=== PATIENT | female | born 1960 | race Caucasian/White ===

== ENCOUNTER 2025-08-17 11:27 | Emergency (ER) | payer MEDICARE, SELFPAY ==
[2025-08-17 11:29] VITALS: BP 182/88
[2025-08-17 12:56] LABS: Hematocrit 44.7 % (37.0-47.0); Hemoglobin 14.9 g/dL (12.0-16.0); Mean Corp Hgb Conc. 33.3 g/dL (33.0-37.0); Mean Corpuscular Volume 80.4 fL (81.0-99.0); Nucleated Red Blood Cells % 0 %; Platelet Count 259 10^3/uL (130-400); Red Cell Dist. Width 12.8 % (11.5-14.5)
[2025-08-17 13:24] LABS: Troponin I < 0.012 ng/ml
[2025-08-17 13:54] LABS: Blood Urea Nitrogen 19 mg/dl (7-17); Calcium 10.2 mg/dl (8.4-10.2); Carbon Dioxide 27 mmol/L (22-30); Chloride 102 mmol/L (98-107); Glucose 112 mg/dl (70-99); Lipase 76 U/L (23-300); Sodium 135 mmol/L (135-145); eGFR > 60.00
[2025-08-17 13:56] VITALS: BMI 36.6
[2025-08-17] MEDS: NSS 1000 IV (13:57)
[2025-08-17] MEDS: TORADOL 15 MG IV (13:58)
[2025-08-17 15:00] VITALS: BP 159/70
--- NOTE | 2025-08-17 15:19 | ED.GENMED ---
History of Present Illness
General
Chief Complaint: Abdominal Pain
Time Seen by Provider: 08/17/25 12:38
History of Present Illness
History of Present Illness:
65-year-old female with history of hypertension and rza-zsbrgjm-murcswhsb diabetes presents to the emergency department for evaluation of right upper abdominal pain beginning yesterday. She has known history of cholelithiasis and typically is able
to manage her biliary colic episodes however this is much more severe than normal. Denies any fevers or chills. She is vomiting and having diarrhea as well. Notes that 2 weeks ago she was started on Mounjaro and her last dose was 1 week ago
Review of Systems
Review of Systems
Allergies reviewed?: Yes
All Other Systems: ROS reviewed and negative except as documented in HPI and ROS
Phy Exam
Physical Exam
Physical Exam:
GEN: Well appearing, NAD, WDWN
HEENT: Oral mucosa moist, no scleral icterus
Cardiac: Regular rate
Lung: No respiratory distress, no tachypnea
Abdomen: Soft, moderate right upper quadrant tenderness, no rigidity or peritoneal signs, negative Vasquez
MSK: No gross deformity or injuries
Skin: Good color, no pallor or jaundice, no rashes
Neuro: AO x3, moves all extremities freely
Psych: Calm, cooperative
Course
Orders/Labs/Results
Orders:
Orders
08/17/25 12:35
Electrocardiogram (*1) Urgent
Reason for Study: Abdominal Pain
EKG- Treatment ONCE
08/17/25 12:46
Basic Metabolic Panel Urgent
Complete Blood Count/With Diff Urgent
Lipase Urgent
Troponin I Urgent
08/17/25 12:54
0.9% Sodium Chloride 1000 ml [Nss] 1,000 ml IV BOLUS
Ketorolac [Toradol] 15 mg IV NOW STA
Metoclopramide [Reglan] 10 mg IV NOW STA
US Abdomen Complete/Upper Urgent
Comment:
Reason For Exam: RUQ pain
08/17/25 14:26
Morphine Sulfate 4 mg IV NOW STA
Abnormal Lab Results
08/17/25
12:46
WBC 13.8 H 10^3/uL
(4.8-10.8)
RBC 5.56 H 10^6/uL
(4.20-5.40)
MCV 80.4 L fL
(81.0-99.0)
MCH 26.8 L pg
(27.0-31.0)
Abs Immat Gran (auto) 0.1 H 10^3/uL
(0-0.05)
Absolute Neuts (auto) 11.9 H 10^3/uL
(1.4-6.5)
Neutrophils % 86.1 H %
(42.2-75.2)
Lymphocytes % 9.0 L %
(20.5-51.1)
BUN 19 H mg/dl
(7-17)
Glucose 112 H mg/dl
(70-99)
08/17/25 12:46
08/17/25 12:46
Vital Signs
Initial and Last Documented VS:
Initial Vital Signs
Temp Pulse Resp BP Pulse Ox
98.2 F 68 18 182/88 97
08/17/25 11:29 08/17/25 11:29 08/17/25 11:29 08/17/25 11:29 08/17/25 11:29
Last Documented Vital Signs
Temp Pulse Resp BP Pulse Ox
98.2 F 67 14 159/70 97
08/17/25 11:29 08/17/25 15:45 08/17/25 15:45 08/17/25 15:00 08/17/25 15:45
MDM/Problems Addressed
MDM/Problems Addressed:
Ultrasound confirms cholelithiasis with no evidence for biliary ductal dilation or cholecystitis. Patient's pain did improve modestly with Toradol. I did discuss the option for surgical consultation and possible admission due to her persistent
pain however she would prefer to do this on an outpatient basis. She is advised to stop her GLP-1, she also declined narcotic pain medication. Low-fat diet advised
*Pulse Oximetry
SaO2: 97
Oxygen Mode of Delivery: Room air
Patient hypoxic: no
*Critical Care Note
Total Time (30-74mins, 75-104mins- exclusive of procedures): Not Applicable
ED Attending Note
-
Portions of this chart may have been created with voice recognition software.� Occasional wrong word or��sound alike� substitutions may have occurred due to the inherent limitations of voice recognition software.
Discharge Plan
Departure
Patient Disposition: Home (Routine Discharge)
Date of Disposition: 08/17/25
Time of Disposition: 15:19
Admit to: Med/Surg
Patient with high blood pressure during this ER visit?: No
Discharge Problem:
Biliary colic
Instructions: Gallstones (DC)
Referrals:
NEGIN ALLEN CRNP [Family Provider, Family Practice]
Jase Colon MD [Active, Surgical] - Call in 1-3 days for appt
Activity Restrictions/Additional Instructions:
Follow up with surgery
Return to the ER if you develop worsening pain or a fever
Interventions
Interventions:
*Risk Screen - Suicide Last Done: 08/17/25 11:29
*General Assessment Last Done: 08/17/25 13:53
*Neglect/Abuse Screening Last Done: 08/17/25 13:53
*ED- Fall Risk Assessment Last Done: 08/17/25 13:53
*ED COVID-19 Vaccine History Last Done: 08/17/25 13:53
*ED Influenza Vaccine History Last Done: 08/17/25 13:53
*Nursing Disposition Last Done: 08/17/25 15:58
HK-Iczsnk-Nhrwnykspb Assessment Last Done: 08/17/25 13:53
Discharge Date and Time
Discharge Date/Time: 08/17/25 16:08
Print Language: BULGARIAN
== END 2025-08-17 16:08 | disposition home or self-care (01) ==
LOC: EMR 11:27
PROVIDERS: EMERGENCY PHYSICIAN Emergency Medicine; FAMILY PHYSICIAN Nurse Practitioner Gerontology
DX: K80.70 Calculus of gallbladder and bile duct without cholecystitis without obstruction (principal); I10 Essential (primary) hypertension; E11.9 Type 2 diabetes mellitus without complications
CPT/HCPCS: 96374; 96361; 99284; 76700; 80048; 83690; 84484; 85025; 93005